=== PATIENT | male | born 1995 | race Caucasian/White ===

== ENCOUNTER 2024-07-12 14:31 | Emergency (ER) | payer MEDICAID ==
[~2024-07-12] VITALS: Ht 167.6 cm; Wt 75.0 kg
[2024-07-12 14:37] VITALS: TEMP 97.7
[2024-07-12] MEDS ORDERED: SULF-261 PO (15:54)
[2024-07-12] MEDS ORDERED: DIPH-1243 PO (15:54)
[2024-07-12] MEDS ORDERED: CEPH-558 PO (15:54)
[2024-07-12] MEDS: DiphenhydrAMINE HCL 50 MG CAPSULE PO ONE (16:09)
[2024-07-12] MEDS: LIDOCAINE/PF 1% 2 ML VIAL IM ONE (16:11)
[2024-07-12] MEDS: DEXAMETHASONE SOD PHOS 4 MG/ML 5 ML VIAL IM ONE (16:11)
[2024-07-12] MEDS: CefTRIAXone SODIUM 1 GM/VIAL IM ONE (16:12)
[2024-07-12 16:53] VITALS: BP 117/61; PULSE 77; RESP 18; O2SAT 97
== END 2024-07-12 16:57 | disposition home or self-care (01) ==
LOC: EMS 14:31
DX: L03.115 Cellulitis of right lower limb (principal); Z90.49 Acquired absence of other specified parts of digestive tract
CPT/HCPCS: 99284; 96372; J0696; J1100; J3490

== ENCOUNTER 2024-11-08 09:16 | Emergency (ER) | payer MEDICAID ==
[~2024-11-08] VITALS: Ht 160 cm; Wt 79.5 kg
[~2024-11-08 09:16] MED LIST: CEPH-558 PO; DIPH-1243 PO; SULF-261 PO
[2024-11-08] MEDS: ACETAMINOPHEN 500 MG TABLET PO ONE (09:46)
[2024-11-08] MEDS: IBUPROFEN 600 MG TABLET PO ONE (09:46)
[2024-11-08 10:04] LABS: COVID AG,FIA SOURCE NASAL SWAB
[2024-11-08 10:21] VITALS: BP 113/75; PULSE 88; RESP 16; TEMP 99; O2SAT 97
[2024-11-08 10:27] LABS: INFLUENZA TYPE A NEGATIVE FOR TYPE A (NEGATIVE); SARS-COV2 (COVID) ANTIGEN,FIA Negative (Negative)
[2024-11-08 10:37] LABS: APPEARANCE,URINE CLEAR (CLEAR); BILIRUBIN,URINE NEGATIVE (NEGATIVE); COLOR,URINE COLORLESS (YELLOW); GLUCOSE, URINE (UA) NEGATIVE (NEGATIVE); KETONES,URINE NEGATIVE (NEGATIVE); LEUKOCYTE ESTERASE ,URINE NEGATIVE (NEGATIVE); NITRATE,URINE NEGATIVE (NEGATIVE); OCCULT BLOOD,URINE NEGATIVE (NEGATIVE); PROTEIN,URINE NEGATIVE (NEGATIVE); SPECIFIC GRAVITIY, URINE 1.006 (1.003-1.030); UROBILINOGEN,URINE <=1.0 mg/dL (<=1.0)
[2024-11-08 10:50] LABS: INFLUENZA TYPE B POSITIVE FOR TYPE B (NEGATIVE)
[2024-11-08] MEDS ORDERED: IBUP-1554 PO (11:18)
[2024-11-08] MEDS ORDERED: GUAIFDM PO (11:18)
[2024-11-08] MEDS ORDERED: ACET-66 PO (11:18)
[2024-11-08 12:18] LABS: BACTERIA,URINE None Seen /HPF (None Seen); RBC,URINE None Seen /HPF (0-2); WBC,URINE None Seen /HPF (0-5)
== END 2024-11-08 11:31 | disposition home or self-care (01) ==
LOC: EMS 09:19
DX: J06.9 Acute upper respiratory infection, unspecified (principal); Z90.49 Acquired absence of other specified parts of digestive tract; Z20.822 Contact with and (suspected) exposure to COVID-19
CPT/HCPCS: 81001; 87804; 99283

== ENCOUNTER 2025-05-05 02:58 | Emergency (ER) | payer MEDICAID ==
[~2025-05-05] VITALS: Ht 162.6 cm; Wt 77.3 kg
[~2025-05-05 02:58] MED LIST changes: +ACET-66 PO; +GUAIFDM PO; +IBUP-1554 PO
[2025-05-05] MEDS: ACETAMINOPHEN 500 MG TABLET PO ONE (03:45)
[2025-05-05 05:00] VITALS: BP 122/74; PULSE 98; RESP 18; O2SAT 97
[2025-05-05] MEDS: LIDOCAINE 1% 10 ML VIAL ID ONE (05:27)
[2025-05-05] MEDS: HYDROGEN PEROXIDE 3% 118 ML SOLUTION TP ONE (05:28)
== END 2025-05-05 06:58 | disposition home or self-care (01) ==
LOC: EMS 03:22
DX: S01.81XA Laceration without foreign body of other part of head, initial encounter (principal); Z02.89 Encounter for other administrative examinations; Z90.49 Acquired absence of other specified parts of digestive tract; V89.2XXA Person injured in unspecified motor-vehicle accident, traffic, initial encounter; Y93.89 Activity, other specified; Y92.410 Unspecified street and highway as the place of occurrence of the external cause; Y99.8 Other external cause status
CPT/HCPCS: 12011; 70450; 70486; 99284

== ENCOUNTER 2025-07-07 16:53 | Emergency (ER) | payer MEDICAID ==
[~2025-07-07] VITALS: Ht 160 cm; Wt 77.3 kg
[~2025-07-07 16:53] MED LIST changes: -DIPH-1243 PO; +DIPH-901 PO; -SULF-261 PO; +SULF1TAB94 PO
[2025-07-07 16:58] VITALS: BP 114/72; PULSE 100; RESP 18; TEMP 98.8; O2SAT 97
[2025-07-07 17:37] LABS: COVID AG,FIA SOURCE NASAL SWAB
[2025-07-07 18:01] LABS: INFLUENZA TYPE A NEGATIVE FOR TYPE A (NEGATIVE); INFLUENZA TYPE B NEGATIVE FOR TYPE B (NEGATIVE)
[2025-07-07 18:02] LABS: SARS-COV2 (COVID) ANTIGEN,FIA Negative (Negative)
[2025-07-07] MEDS ORDERED: AZIT-164 PO (18:16)
[2025-07-07] MEDS: AZITHROMYCIN 500 MG TABLET PO ONE (18:42)
[2025-07-07] MEDS: ALBUTEROL SULFATE HFA 90 MCG/PUFF 8 GM INHALER IH ONE (18:42)
== END 2025-07-07 18:55 | disposition home or self-care (01) ==
LOC: EMS 16:53
DX: J18.0 Bronchopneumonia, unspecified organism (principal); Z90.49 Acquired absence of other specified parts of digestive tract; Z79.899 Other long term (current) drug therapy; Z87.891 Personal history of nicotine dependence; Z20.822 Contact with and (suspected) exposure to COVID-19
CPT/HCPCS: 99284; 71045; 87426; 87804; 94640; J0456; J3535